=== PATIENT | female | born 1960 | race African-American/Black ===

== ENCOUNTER 2018-11-18 20:49 | Emergency (ER) | payer MEDICAID, MEDICARE ==
[~2018-11-18] VITALS: Ht 157.5 cm; Wt 99.0 kg
[~2018-11-18 20:49] MED LIST: AMLO10TA80 PO; ASPI-1160 PO; DILT180C66 PO; Furosemide PO; HYDR-4134 PO; INSNPH SUBCUT; INSU100V28 IJ; LOSA25TA3 PO; MONT10TA21 PO; insulin
[2018-11-18] MEDS ORDERED: SODIUM CHLORIDE 0.9% 1,000 ML IV ONE (22:26)
[2018-11-18] MEDS ORDERED: ONDANSETRON HCL 4MG/2ML INJ IV STA (22:26)
[2018-11-18] MEDS ORDERED: MORPHINE SULFATE 4 MG/ML CPJ (NOT FOR IM USE) IV STA (22:26)
[2018-11-18 22:58] LABS: HEMATOCRIT. 39.3 % (36.0-48.0); HEMOGLOBIN. 12.8 g/dL (12.0-16.0); MEAN CORPUSCULAR HEMOGLOBIN 28.9 pg (28.0-32.0); MEAN CORPUSCULAR VOLUME 88.7 fL (81.0-99.0); MEAN PLATELET VOLUME 9.9 fl (7.4-10.4); PLATELET 171 x1000/uL (130-400); RED BLOOD CELL COUNT 4.44 mill/uL (4.2-5.4); RED CELL DISTRIBUTION WIDTH 14.2 % (11.6-14.6)
[2018-11-18 23:03] LABS: CHLORIDE 104 mEq/L (98-107)
[2018-11-18 23:27] LABS: PLATELET ESTIMATE NORMAL
[2018-11-18] MEDS ORDERED: LISINOPRIL 20MG TABLET PO ONE (23:45)
[2018-11-18] MEDS ORDERED: CLONIDINE 0.3MG TABLET PO ONE (23:45)
[2018-11-19 01:40] VITALS: BP 175/110
== END 2018-11-19 01:42 | disposition home or self-care (01) ==
LOC: ER 20:49
DX: S21.90XD Unspecified open wound of unspecified part of thorax, subsequent encounter (principal); X58.XXXD Exposure to other specified factors, subsequent encounter; J45.909 Unspecified asthma, uncomplicated; E11.9 Type 2 diabetes mellitus without complications; I10 Essential (primary) hypertension; L98.499 Non-pressure chronic ulcer of skin of other sites with unspecified severity; F17.200 Nicotine dependence, unspecified, uncomplicated; Z98.890 Other specified postprocedural states; Z79.899 Other long term (current) drug therapy; Z79.82 Long term (current) use of aspirin
CPT/HCPCS: 36415; 80053; 85025; 96374; 96375; 99283; J2270; J2405; J7030; Z7610

== ENCOUNTER 2019-03-08 13:19 | Inpatient (IN) | payer MEDICARE ==
[~2019-03-08] VITALS: Ht 160 cm; Wt 99.8 kg
[2019-03-08] MEDS ORDERED: SODIUM CHLORIDE 0.9% 1,000 ML IV ONE (15:02)
[2019-03-08] MEDS ORDERED: ACETAMINOPHEN 325MG TABLET PO STA (15:02)
[2019-03-08] MEDS ORDERED: VANCOMYCIN 1 G PREMIX 200 ML IV ONE (15:15)
[2019-03-08] MEDS ORDERED: PIPERACILLIN/TAZ 3.375G PREMIX 50 ML IV ONE (15:15)
[2019-03-08] MEDS ORDERED: MORPHINE SULFATE 4 MG/ML CPJ (NOT FOR IM USE) IV ONE (16:00)
[2019-03-08 17:08] LABS: BASOPHILS % 1.1 % (0.0-2.0); EOSINOPHILS % 2.1 % (0.0-5.0); HEMATOCRIT. 35.3 % (36.0-48.0); HEMOGLOBIN. 11.6 g/dL (12.0-16.0); MEAN CORPUSCULAR HEMOGLOBIN 28.4 pg (28.0-32.0); MEAN CORPUSCULAR VOLUME 86.8 fL (81.0-99.0); MONOCYTES % 7.3 % (2.0-8.0); NEUTROPHILS % 40.5 % (40.0-76.0); PLATELET 196 x1000/uL (130-400); RED BLOOD CELL COUNT 4.07 mill/uL (4.2-5.4); RED CELL DISTRIBUTION WIDTH 14.4 % (11.6-14.6)
[2019-03-08 17:12] LABS: CHLORIDE 105 mEq/L (98-107); PROTHROMBIN TIME 9.9 sec (9.6-11.0)
[2019-03-08 18:07] LABS: CLARITY URINE CLEAR (CLEAR); COLOR URINE YELLOW (YELLOW); KETONES URINE NEGATIVE (NEGATIVE); LEUKOCYTE ESTERASE URINE NEGATIVE (NEGATIVE); NITRITE URINE NEGATIVE (NEGATIVE); OCCULT BLOOD URINE NEGATIVE (NEGATIVE); PH URINE 5.5 (4.5-8.0); PROTEIN URINE 2+ (NEGATIVE); SPECIFIC GRAVITY URINE 1.023 (1.005-1.030); UROBILINOGEN URINE 0.2 E.U./dL (0.2-1.0)
[2019-03-08] MEDS ORDERED: CLONIDINE 0.3MG TABLET PO ONE (18:30)
[2019-03-08] MEDS ORDERED: LISINOPRIL 20MG TABLET PO ONE (18:30)
[2019-03-08 22:00] VITALS: BP_SYST 154; BP_SYST 165; BP_DIAS 81; BP_DIAS 91
[2019-03-08 22:32] VITALS: BP 154/94
[2019-03-08] MEDS ORDERED: OXYB5TAB11 PO (23:04)
[2019-03-09] VITALS: BP 165/80
[2019-03-09] MEDS ORDERED: DEXTROSE 50% WATER 50ML SYRINGE IV PRN (00:45)
[2019-03-09] MEDS: MORPHINE SULFATE 4 MG/ML CPJ (NOT FOR IM USE) IV PRN ×3 (01:27→15:03)
[2019-03-09] MEDS: PIPERACILLIN/TAZOBACTAM 3.375 G in DEXT 5% WATER 100 ML IV SCH ×3 (02:48→14:06)
[2019-03-09 04:00] VITALS: BP 148/93
[2019-03-09] MEDS ORDERED: VANCOMYCIN 750 MG PREMIX 150 ML IV SCH (05:00)
[2019-03-09] MEDS ORDERED: PIPERACILLIN/TAZOBACTAM 3.375GM/50ML PREMIX IV ONE (06:00)
[2019-03-09] MEDS: BLOOD SUGAR DIAGNOSTIC STRIP TEST SCH ×2 (06:43→12:29)
[2019-03-09 06:53] LABS: BASOPHILS % 0.9 % (0.0-2.0); EOSINOPHILS % 3.7 % (0.0-5.0); HEMATOCRIT. 33.4 % (36.0-48.0); LYMPHOCYTES % 51.3 % (20.0-50.0); MEAN CORPUSCULAR HEMOGLOBIN 28.5 pg (28.0-32.0); MEAN CORPUSCULAR VOLUME 86.4 fL (81.0-99.0); MONOCYTES % 8.8 % (2.0-8.0); NEUTROPHILS % 35.3 % (40.0-76.0); PLATELET 195 x1000/uL (130-400); RED BLOOD CELL COUNT 3.86 mill/uL (4.2-5.4); RED CELL DISTRIBUTION WIDTH 14.4 % (11.6-14.6)
[2019-03-09 06:59] LABS: CHLORIDE 105 mEq/L (98-107)
[2019-03-09 07:08] LABS: T4 FREE 1.09 ng/dL (0.76-1.46)
[2019-03-09] MEDS ORDERED: PANTOPRAZOLE 40MG DR TABLET PO SCH (07:20)
[2019-03-09 08:00] VITALS: BP 162/98
[2019-03-09] MEDS ORDERED: AMLODIPINE 10MG TABLET PO SCH (09:00)
[2019-03-09] MEDS ORDERED: LOSARTAN POTASSIUM 50 MG TABLET PO SCH ×2 (09:00)
[2019-03-09] MEDS ORDERED: ASPIRIN 81MG TABLET PO SCH (09:00)
[2019-03-09] MEDS ORDERED: ENOXAPARIN 40MG/0.4ML SYR SUBCUT SCH (09:00)
[2019-03-09] MEDS ORDERED: ENOXAPARIN 30MG/0.3ML SYR SUBCUT SCH (09:00)
[2019-03-09 12:00] VITALS: BP 135/83
[2019-03-09] MEDS: INSULIN LISPRO 100 UNITS/ML SUBCUT SCH ×2 (12:25→12:50)
[2019-03-09] MEDS ORDERED: IPRATROPIUM/ALBUTEROL 0.5-3(2.5)MG/3ML NEB HHN PRN (13:15)
[2019-03-09] MEDS ORDERED: INSULIN GLARGINE UD 100 UNITS/ML SYR SUBCUT ONE (15:00)
[2019-03-09 16:00] VITALS: BP 149/93
[2019-03-09] MEDS ORDERED: CEFTRIAXONE 1 G PREMIX 50 ML IV SCH (16:00)
[2019-03-09 16:40] VITALS: BP 135/83
[2019-03-09] MEDS ORDERED: INSULIN LISPRO 100 UNITS/ML SUBCUT SCH (17:50)
[2019-03-09] MEDS ORDERED: IPRATROPIUM/ALBUTEROL 0.5-3(2.5)MG/3ML NEB HHN SCH (18:00)
[2019-03-09] MEDS ORDERED: BUDESONIDE 0.5MG/2ML NEB HHN SCH (18:00)
[2019-03-09] MEDS ORDERED: INSULIN GLARGINE UD 100 UNITS/ML SYR SUBCUT SCH (22:00)
[2019-03-10] MEDS ORDERED: VANCOMYCIN 750 MG PREMIX 150 ML IV SCH (09:00)
== END 2019-03-09 17:40 | disposition home health service (06) | DRG 384 ==
LOC: ER 13:34 → 6EST 18:42 → EDBEDREQTM 18:45 → EDBEDREQ 18:45 → EDBEDREQSVC 18:45 → ENRESERV 20:09
PROVIDERS: ADMIT Internal Medicine; ATTEND Internal Medicine
DX: S31.829A Unspecified open wound of left buttock, initial encounter (principal); L89.159 Pressure ulcer of sacral region, unspecified stage; I11.0 Hypertensive heart disease with heart failure; E11.65 Type 2 diabetes mellitus with hyperglycemia; I50.9 Heart failure, unspecified; J45.901 Unspecified asthma with (acute) exacerbation; D64.9 Anemia, unspecified; M17.11 Unilateral primary osteoarthritis, right knee; E66.9 Obesity, unspecified; N39.0 Urinary tract infection, site not specified; X58.XXXA Exposure to other specified factors, initial encounter; Z91.19 Patient's noncompliance with other medical treatment and regimen; Y93.89 Activity, other specified; Y92.89 Other specified places as the place of occurrence of the external cause; Y99.8 Other external cause status; Z68.39 Body mass index [BMI] 39.0-39.9, adult; Z79.899 Other long term (current) drug therapy; Z79.82 Long term (current) use of aspirin; Z79.4 Long term (current) use of insulin
CPT/HCPCS: 36415; 71045; 73560; 80048; 81003; 82962; 83605; 84145; 84439; 84443; 93005; 97162; 99285; J0696; J1650; J1815; J2270; J2543; J3370; J7030; J7040; J7060

== ENCOUNTER 2019-05-06 15:07 | Emergency (ER) | payer MEDICARE ==
[~2019-05-06] VITALS: Ht 152.4 cm; Wt 127.0 kg
[~2019-05-06 15:07] MED LIST changes: +OXYB5TAB17 PO
[2019-05-06] MEDS ORDERED: IPRATROPIUM BROMIDE (0.02%) 0.5MG/2.5ML NEB HHN STA (15:25)
[2019-05-06] MEDS ORDERED: ALBUTEROL (0.083%) 2.5MG/3ML NEB HHN STA (15:25)
[2019-05-06] MEDS ORDERED: FUROSEMIDE 40MG TABLET PO ONE (15:30)
[2019-05-06 16:41] VITALS: BP 126/78
[2019-05-16] MEDS ORDERED: NICO1PAT50 TP (15:13)
[2019-05-16] MEDS ORDERED: P20 PO (15:13)
[2019-05-16] MEDS ORDERED: ALBU05 NEB (15:13)
[2019-05-16] MEDS ORDERED: DILT60TA3 MT (15:13)
[2019-05-16] MEDS ORDERED: LEVO500T2 MT (15:13)
== END 2019-05-06 17:49 | disposition home or self-care (01) ==
LOC: ER 17:42
DX: E11.9 Type 2 diabetes mellitus without complications (principal); I10 Essential (primary) hypertension; J45.901 Unspecified asthma with (acute) exacerbation
CPT/HCPCS: 71045; 94640; 99283; J7611; Z7610